=== PATIENT | female | born 1990 | race Caucasian/White ===

== ENCOUNTER 2017-08-12 22:26 | Inpatient (IN) | payer MEDICAID ==
[2017-08-12] MEDS ORDERED: fentaNYL 100 MCG/2 ML SDV IVPUSH ONE (23:29)
[2017-08-12] MEDS ORDERED: Sodium Chloride 0.9% 10 ML Syringe FLUSH PRN (23:30)
[2017-08-13] MEDS ORDERED: Lactated Ringers 1,000 ML IV ONE (00:30)
[2017-08-13] MEDS ORDERED: diphenhydrAMINE 50 MG/ML SDV IVPUSH PRN ×2 (01:14)
[2017-08-13] MEDS ORDERED: ePHEDrine 50 MG/ML SDV IV PRN (01:14)
[2017-08-13] MEDS ORDERED: Naloxone 0.4 MG/ML SDV IVPUSH PRN (01:14)
[2017-08-13] MEDS ORDERED: Ropivacaine HCl/PF 200 ML ONE (01:26)
[2017-08-13] MEDS ORDERED: Lactated Ringers 1,000 ML IV SCH (01:45)
[2017-08-13] MEDS ORDERED: ROPIVACAINE EPIDUR SCH (02:00)
--- NOTE | 2017-08-13 02:23 | ANES ---
DATE OF SERVICE: 08/13/2017 TIME: 0130 hours. INDICATION: I was called to the Labor and Delivery Unit to evaluate Ms. Clemons for a labor epidural. This is her 2nd baby and she is approximately 4 cm and progressing nicely. The risks and benefits of the procedure were explained to the patient. She wished to proceed with labor epidural. DESCRIPTION OF PROCEDURE: I did place her in the sitting position. Her back was prepped x3 with Betadine and 1% lidocaine skin local was used. The epidural was placed at L3-L4 using a 17-gauge Tuohy needle in loss of resistance technique. The epidural had very good feel throughout and the epidural space was easily identified. There was negative CSF, negative blood, and negative paresthesias noted. Therefore, a catheter was threaded to 13 cm at the skin. There was negative CSF, negative blood, and negative paresthesias with the catheter as well. A 3 mL test dose of 1.5% lidocaine with epinephrine was given and this test dose was negative. The catheter was then secured with Tegaderm and tape. The patient was then placed in the supine position and a bolus of 10 mL of 0.2% ropivacaine was given. She had very nice relief from the bolus. A 0.2% ropivacaine drip was started at 12 mL/h. Her vital signs remained stable throughout the procedure and nurse was with me the entire procedure. There were no anesthesia complications noted, and we will continue to watch her throughout her Labor and Delivery stay. Kobe Paredes CRNA /[id number]
[2017-08-13] MEDS ORDERED: Sodium Chloride 0.9% 10 ML Syringe FLUSH PRN (03:43)
[2017-08-13] MEDS ORDERED: Acetaminophen 325 MG Tab PO PRN (03:43)
[2017-08-13] MEDS ORDERED: Ondansetron 4 MG Tab.DIS PO PRN (03:43)
--- NOTE | 2017-08-13 03:54 | PCM.LDHP ---
L&D History of Present Illness - General Date of Service: 08/13/17 Admit Problem/Dx: Patient Status Order with Admit Dx/Problem 08/12/17 23:30 Admission Status [Patient Status] [ADT] Routine 08/13/17 03:43 Patient Status [ADT] Routine Admission Diagnosis/Problem Admission Diagnosis/Problem Labor established Source of Information: Patient History Limitations: Reports: No Limitations - History of Present Illness Introduction:: This 26 year old who is 39 1/7 weeks gestation presented with contractions at 1100 last evening. She had been seen in clinic yesterday and was dilated to 3 cm bloody show with vaginal exam. contractions became intense over the evening and she decided that it was time to come in. Timing/Duration: Reports: minutes: (3-5) Location, : Reports: Abdomen Quality: Reports: Pressure Severity: Moderate Pain Score: 8 Improves with: Reports: None Worsens with: Reports: None Associated Symptoms: Reports: vaginal fluid Present Illness Comments:: SROM with exam at 0330, clear fluid and dil to 8 cm/100/1 - Related Data Allergies/Adverse Reactions: Allergies Allergy/AdvReac Type Severity Reaction Status Date / Time No Known Allergies Allergy Verified 02/04/14 11:22 Home Medications: Home Meds NK [No Known Home Meds] 02/04/14 [History] Past Medical History SYSTEM ADMIN History: Reports: : 2 Para: 1 LMP (Approximate): (39 1/7) - Infectious Disease History Infectious Disease History: Reports: Chicken Pox - Past Surgical History HEENT Surgical History: Reports: Myringotomy w Tube(s) Social & Family History - Tobacco Use Smoking Status *Q: Never Smoker Second Hand Smoke Exposure: No - Caffeine Use Caffeine Use: Reports: Coffee, Soda Caffeine Use Comment: occasionally - Recreational Drug Use Recreational Drug Use: No H&P Review of Systems - Review of Systems: Review Of Systems: See Below General: Reports: No Symptoms HEENT: Reports: No Symptoms Pulmonary: Reports: No Symptoms Cardiovascular: Reports: No Symptoms Gastrointestinal: Reports: No Symptoms Genitourinary: Reports: No Symptoms Musculoskeletal: Reports: No Symptoms Skin: Reports: No Symptoms Psychiatric: Reports: No Symptoms Neurological: Reports: No Symptoms Hematologic/Lymphatic: Reports: No Symptoms Immunologic: Reports: No Symptoms L&D Exam - Exam Exam: See Below - Vital Signs Vital Signs: Last Vital Signs Temp 96.6 F 08/13/17 01:42 Pulse 97 08/13/17 02:02 Resp 16 08/13/17 02:02 BP 113/71 08/13/17 02:02 Pulse Ox 94 L 08/13/17 02:02 Weight: 170 lb - OB Specific Contraction Duration (sec): 70-100 Contraction Frequency (min): 3-6 Contraction Intensity: Strong Movement: Active Heart Tones: Present Heart Tones per Min: 120 Heart Rate (FHR) Variability: Moderate (6-25 bmp) Presentation: Vertex Estimated Weight: 8 pounds - Morris Score Morris Score Cervix Position: Anterior Morris Score Consistency: Soft Morris Score Effacement: >80% Morris Score Dilation: > 5 cm Morris Score Infant's Station: -1 ,0 Morris Score Total: 12 - Exam General: Alert, Oriented HEENT: PERRLA, Conjunctiva Clear, EACs Clear, EOMI, Hearing Intact, Mucosa Moist & [place], Nares Patent, Normal Nasal Septum, Posterior Pharynx Clear, TMs Clear Neck: Supple, Trachea Midline Lungs: Clear to Auscultation, Normal Respiratory Effort Cardiovascular: Regular Rate, Regular Rhythm GI/Abdominal Exam: Normal Bowel Sounds, Soft, Non-Tender, No Distention, No Mass , Pelvis Stable Rectal Exam: Normal Exam, Normal Rectal Tone Genitourinary: Normal external exam, Cervical dilitation, Cervical fluid, Enlarged uterus Back Exam: Normal Inspection, Full Range of Motion Extremities: Normal Inspection, Normal Range of Motion, Non-Tender, No Pedal Edema, Normal Capillary Refill Skin: Warm, Dry, Intact Neurological: Cranial Nerves Intact, Reflexes Equal Bilateral Psychiatric: Alert, Normal Affect, Normal Mood - Patient Data Lab Results Last 24 hrs: Laboratory Results - last 24 hr 08/12/17 08/12/17 08/13/17 Range/Units 22:31 23:43 00:45 WBC 9.9 (4.5-11.0) K/uL RBC 4.02 (3.30-5.50) M/uL Hgb 13.4 (12.0-15.0) g/dL Hct 39.1 (36.0-48.0) % MCV 97 (80-98) fL MCH 33 H (27-31) pg MCHC 34 (32-36) % Plt Count 121 L (150-400) K/uL Neut % (Auto) 83 H (36-66) % Lymph % (Auto) 12 L (24-44) % [place] % (Auto) 5 (2-6) % Eos % (Auto) 0 L (2-4) % Baso % (Auto) 0 (0-1) % Urine Color Yellow Urine Appearance Cloudy Urine pH 7.0 (4.5-8.0) Ur Specific [place] 1.015 (1.008-1.030) Urine Protein Negative (NEGATIVE) mg/dL Urine Glucose (UA) Normal (NEGATIVE) mg/dL Urine Ketones Negative (NEGATIVE) mg/dL Urine Occult Blood Large (NEGATIVE) Urine Nitrite Negative (NEGATIVE) Urine Bilirubin Negative (NEGATIVE) Urine Urobilinogen Normal (NORMAL) mg/dL Ur Leukocyte Esterase Negative (NEGATIVE) Urine RBC 0-5 (0-5) Urine WBC 0-5 (0-5) Ur Epithelial Cells Few Amorphous Sediment Moderate Urine Bacteria Moderate Urine Mucus Not seen Urine Opiates Screen Negative (NEGATIVE) Ur Oxycodone Screen Negative (NEGATIVE) Urine Methadone Screen Negative (NEGATIVE) Ur Propoxyphene Screen Negative (NEGATIVE) Ur Barbiturates Screen Negative (NEGATIVE) Ur Tricyclics Screen Negative (NEGATIVE) Ur Phencyclidine Scrn Negative (NEGATIVE) Ur Amphetamine Screen Negative (NEGATIVE) U Methamphetamines Scrn Negative (NEGATIVE) Urine MDMA Screen Negative (NEGATIVE) U Benzodiazepines Scrn Negative (NEGATIVE) U Cocaine Metab Screen Negative (NEGATIVE) U Marijuana (THC) Screen Negative (NEGATIVE) Result Diagrams: 08/13/17 00:45 - Problem List (1) SNOMED Code(s): 86068300 ICD Code: Z34.90 - ENCNTR FOR SUPRVSN OF NORMAL , UNSP, UNSP TRIMESTER Status: Acute Current Visit: Yes Qualifiers: Weeks of gestation: 39 weeks Qualified Code(s): Z3A.39 - 39 weeks gestation of (2) Active labor at term SNOMED Code(s): 12942902 ICD Code: MWY1733 - Status: Acute Current Visit: Yes Problem List Initiated/Reviewed/Updated: Yes Orders Last 24hrs: Active Orders 24 hr Category Date Time Status Patient Status [ADT] Routine ADT 08/13/17 03:43 Ordered Antiembolic Devices [RC] .Routine Care 08/13/17 03:46 Ordered Communication Order [RC] ASDIRECTED Care 08/13/17 03:43 Ordered Heart Tones [RC] PER UNIT ROUTINE Care 08/13/17 03:43 Ordered Insert Urinary Catheter [OM.PC] Q24H Care 08/13/17 02:00 Ordered Notify Provider Vital Signs [RC] PRN Care 08/13/17 00:00 Ordered Notify Provider [RC] PRN Care 08/13/17 03:43 Ordered OB Check [OM.PC] Click to Edit Care 08/12/17 22:30 Ordered PCEA Epidural [RC] ASDIRECTED Care 08/13/17 01:37 Active Urinary Catheter Assessment [RC] ASDIRECTED Care 08/13/17 01:50 Active VTE/DVT Education [RC] Click to Edit Care 08/13/17 03:46 Ordered Vital Signs [RC] PER UNIT ROUTINE Care 08/13/17 03:43 Ordered Regular Diet [DIET] Diet 08/13/17 Breakfast Ordered Acetaminophen [Tylenol] Med 08/13/17 03:43 Ordered 650 mg PO Q4H PRN Lactated Ringers [Ringers, Lactated] 1,000 ml Med 08/13/17 01:45 Active IV ASDIRECTED Naloxone [Narcan] Med 08/13/17 01:14 Active 0.1 mg IVPUSH Q5M PRN Naloxone [Narcan] 0.4 mg Med 08/13/17 01:14 Active Sodium Chloride 0.9% [Normal Saline] 1,000 ml IV ASDIRECTED Ondansetron [Zofran ODT] Med 08/13/17 03:43 Ordered 4 mg PO Q4H PRN Oxytocin/Normal Saline [Pitocin in NS 20 Units/1,000 ML Med 08/13/17 04:00 Ordered ] 1,000 ml IV TITRATE Ropivacaine [Naropin 0.2%] 400 mg Med 08/13/17 02:00 Active Premix Bag 1 bag EPIDUR ASDIRECTED Sodium Chloride 0.9% [Saline Flush] Med 08/12/17 23:30 Active 10 ml FLUSH ASDIRECTED PRN Sodium Chloride 0.9% [Saline Flush] Med 08/13/17 03:43 Ordered 10 ml FLUSH ASDIRECTED PRN diphenhydrAMINE [Benadryl] Med 08/13/17 01:14 Active 25 mg IVPUSH Q6H PRN diphenhydrAMINE [Benadryl] Med 08/13/17 01:14 Active 50 mg IVPUSH Q6H PRN ePHEDrine [ePHEDrine Sulfate] Med 08/13/17 01:14 Active 5 - 10 mg IV ASDIRECTED PRN DVT/VTE Prophylaxis Reflex [OM.PC] Routine Oth 08/13/17 03:43 Ordered Epidural Catheter Management [OM.PC] Routine Oth 08/13/17 01:36 Ordered Saline Lock Insert [OM.PC] Routine Oth 08/12/17 23:30 Ordered Saline Lock Insert [OM.PC] Routine Oth 08/13/17 03:43 Ordered Resuscitation Status Routine Resus Stat 08/13/17 03:43 Ordered Medication Orders Diphenhydramine HCl (Benadryl) 25 mg IVPUSH Q6H PRN PRN Reason: ITCHING Diphenhydramine HCl (Benadryl) 50 mg IVPUSH Q6H PRN PRN Reason: ITCHING Ephedrine Sulfate (Ephedrine Sulfate) 5 - 10 mg IV ASDIRECTED PRN PRN Reason: Systolic BP less than 100 Naloxone HCl 0.4 mg/ Sodium (Chloride) 1,001 mls @ 0 mls/hr IV ASDIRECTED PRN; Protocol PRN Reason: ITCHING Lactated Ringer's (Ringers, Lactated) 1,000 mls @ 100 mls/hr IV ASDIRECTED [facility] Last Admin: 08/13/17 01:30 Dose: 100 mls/hr Ropivacaine 400 mg/ Premix 200 mls @ 0 mls/hr EPIDUR ASDIRECTED [facility] Last Admin: 08/13/17 01:52 Dose: 12 mls/hr Naloxone HCl (Narcan) 0.1 mg IVPUSH Q5M PRN PRN Reason: IF RESP RATE LESS THAN 6 Sodium Chloride (Saline Flush) 10 ml FLUSH ASDIRECTED PRN PRN Reason: Keep Vein Open Sodium Chloride (Saline Flush) 10 ml FLUSH ASDIRECTED PRN PRN Reason: Keep Vein Open Assessment/Plan Comment:: this 26 yr old 39 1/7 weeks gestation in active labor with an epidural Labs ABO A neg, had Rhogam GBS neg HIV neg Rubella Immune Plan Anticipate vaginal delivery
[2017-08-13] MEDS ORDERED: Calcium Carbonate 500 MG Tab.Chew PO PRN (04:16)
--- NOTE | 2017-08-13 07:18 | PCM.DEL ---
L & D Note - General Info Date of Service: 08/13/17 (birthday) Mother's Due Date: 08/19/17 - Delivery Note Labor: Spontaneous Delivery Outcome: Livebirth Infant Delivery Method: Spontaneous Vaginal Delivery-Single Infant Delivery Mode: Spontaneous Presentation: Right Occiput Anterior ([place]) Nuchal Cord: Present, Reduced Anesthesia Type: Epidural Amniotic Fluid Description: Clear Episiotomy Type: None Laceration: 1st Degree, Perineal Suture type: Vicryl Suture size: 3-0 Placenta: Intact, Spontaneous Cord: 3 Vessels Estimated Blood Loss: 200 Resuscitation Needed: Yes [place]: Suctioned, Bulb Syringe, Cathether, Stimulated, Warmed, [place] Used, Warmer Used Provider: Adrianna Tubbs Score 1 min: 9 Score 5 min: 9 Post Delivery Events: Other (see below) Second Stage Interventions: Reports: Pushing Effectively, Pushing, McRobert's Position Delivery Comments (Free Text/Narrative):: This 26 year oldG2 now P2 who is 39 1/7 gestation delivered at 0547 in [place] with a nuchal cord which was easily reduced. The cried spontaneously and was placed on mother's abdomen, where he was dried and stimulated. Of interest the vernix was grainy. At 0555 he turned blue and was coughing. He was taken to the warmer for further assessment. He was suctions and PPV started. Poor color. [employer] and Dr. Jamil were called for assistance. His color remained poor. Attempts to pass nasal suction were unsuccessful. OG was placed and stomach emptied. 0622 [employer] present and ET placed and ventilations started. color improved O2 sat 100. HR 123. orders placed for cbc crp, blood cultures and chest xray. The placenta was expressed spontaneously intact and sent to pathology. The first degree perineal tear was repaired with 3-0 vircyl. No other lacerations were found of vagina, rectum or cervix. ELB 200 cc Mother to post baby to nursery for [facility] assessment and transportation to [facility] - General Info Date of Service: 08/13/17 Admission Dx/Problem (Free Text): Patient Status Order with Admit Dx/Problem 08/12/17 23:30 Admission Status [Patient Status] [ADT] Routine 08/13/17 03:43 Patient Status [ADT] Routine Admission Diagnosis/Problem Admission Diagnosis/Problem Labor established Functional Status: Reports: Pain Controlled - Review of Systems General: Reports: No Symptoms HEENT: Reports: No Symptoms Pulmonary: Reports: No Symptoms Cardiovascular: Reports: No Symptoms Gastrointestinal: Reports: No Symptoms Genitourinary: Reports: No Symptoms Musculoskeletal: Reports: No Symptoms Skin: Reports: No Symptoms Neurological: Reports: No Symptoms Psychiatric: Reports: No Symptoms - Patient Data Vitals - Most Recent: Last Vital Signs Temp 97.5 F 08/13/17 04:35 Pulse 89 08/13/17 04:35 Resp 18 08/13/17 04:35 BP 106/68 08/13/17 04:35 Pulse Ox 99 08/13/17 04:35 Weight - Most Recent: 170 lb Lab Results Last 24 Hours: Laboratory Results - last 24 hr 08/12/17 08/12/17 08/13/17 Range/Units 22:31 23:43 00:45 WBC 9.9 (4.5-11.0) K/uL RBC 4.02 (3.30-5.50) M/uL Hgb 13.4 (12.0-15.0) g/dL Hct 39.1 (36.0-48.0) % MCV 97 (80-98) fL MCH 33 H (27-31) pg MCHC 34 (32-36) % Plt Count 121 L (150-400) K/uL Neut % (Auto) 83 H (36-66) % Lymph % (Auto) 12 L (24-44) % [place] % (Auto) 5 (2-6) % Eos % (Auto) 0 L (2-4) % Baso % (Auto) 0 (0-1) % Urine Color Yellow Urine Appearance Cloudy Urine pH 7.0 (4.5-8.0) Ur Specific [place] 1.015 (1.008-1.030) Urine Protein Negative (NEGATIVE) mg/dL Urine Glucose (UA) Normal (NEGATIVE) mg/dL Urine Ketones Negative (NEGATIVE) mg/dL Urine Occult Blood Large (NEGATIVE) Urine Nitrite Negative (NEGATIVE) Urine Bilirubin Negative (NEGATIVE) Urine Urobilinogen Normal (NORMAL) mg/dL Ur Leukocyte Esterase Negative (NEGATIVE) Urine RBC 0-5 (0-5) Urine WBC 0-5 (0-5) Ur Epithelial Cells Few Amorphous Sediment Moderate Urine Bacteria Moderate Urine Mucus Not seen Urine Opiates Screen Negative (NEGATIVE) Ur Oxycodone Screen Negative (NEGATIVE) Urine Methadone Screen Negative (NEGATIVE) Ur Propoxyphene Screen Negative (NEGATIVE) Ur Barbiturates Screen Negative (NEGATIVE) Ur Tricyclics Screen Negative (NEGATIVE) Ur Phencyclidine Scrn Negative (NEGATIVE) Ur Amphetamine Screen Negative (NEGATIVE) U Methamphetamines Scrn Negative (NEGATIVE) Urine MDMA Screen Negative (NEGATIVE) U Benzodiazepines Scrn Negative (NEGATIVE) U Cocaine Metab Screen Negative (NEGATIVE) U Marijuana (THC) Screen Negative (NEGATIVE) Med Orders - Current: Current Medications Acetaminophen (Tylenol) 650 mg PO Q4H PRN PRN Reason: Pain (Mild 1-3) and fever Calcium Carbonate/Glycine (Tums) 1,000 mg PO Q2H PRN PRN Reason: Indigestion Last Admin: 08/13/17 04:35 Dose: 1,000 mg Diphenhydramine HCl (Benadryl) 25 mg IVPUSH Q6H PRN PRN Reason: ITCHING Diphenhydramine HCl (Benadryl) 50 mg IVPUSH Q6H PRN PRN Reason: ITCHING Ephedrine Sulfate (Ephedrine Sulfate) 5 - 10 mg IV ASDIRECTED PRN PRN Reason: Systolic BP less than 100 Naloxone HCl 0.4 mg/ Sodium (Chloride) 1,001 mls @ 0 mls/hr IV ASDIRECTED PRN; Protocol PRN Reason: ITCHING Lactated Ringer's (Ringers, Lactated) 1,000 mls @ 100 mls/hr IV ASDIRECTED [place] Last Admin: 08/13/17 01:30 Dose: 100 mls/hr Ropivacaine 400 mg/ Premix 200 mls @ 0 mls/hr EPIDUR ASDIRECTED [facility] Last Admin: 08/13/17 01:52 Dose: 12 mls/hr Oxytocin/Sodium Chloride (Pitocin In Ns 20 Units/1,000 Ml) 20 unit in 1,000 mls @ 6 mls/hr IV TITRATE [facility]; Protocol Last Admin: 08/13/17 04:19 Dose: 6 munits/min, 18 mls/hr Naloxone HCl (Narcan) 0.1 mg IVPUSH Q5M PRN PRN Reason: IF RESP RATE LESS THAN 6 Ondansetron HCl (Zofran Odt) 4 mg PO Q4H PRN PRN Reason: Nausea/Vomiting Sodium Chloride (Saline Flush) 10 ml FLUSH ASDIRECTED PRN PRN Reason: Keep Vein Open Sodium Chloride (Saline Flush) 10 ml FLUSH ASDIRECTED PRN PRN Reason: Keep Vein Open Discontinued Medications Fentanyl (Sublimaze) 100 mcg IVPUSH ONETIME ONE Stop: 08/12/17 23:30 Last Admin: 08/12/17 23:39 Dose: 100 mcg Oxytocin/Sodium Chloride (Pitocin In Ns 20 Units/1,000 Ml) Confirm Administered Dose 20 unit in 1,000 mls @ as directed .ROUTE .STK-MED ONE Stop: 08/13/17 01:24 Last Admin: 08/13/17 04:23 Dose: Not Given Ropivacaine (Naropin 0.2%) Confirm Administered Dose 200 mls @ as directed .ROUTE .STK-MED ONE Stop: 08/13/17 01:27 Lactated Ringer's (Ringers, Lactated) 1,000 mls @ 999 mls/hr IV BOLUS ONE Stop: 08/13/17 01:30 Last Admin: 08/13/17 00:30 Dose: 999 mls/hr - Exam General: Alert, Oriented HEENT: Pupils Equal, Pupils Reactive, EOMI, Mucous Membr. Moist/[place] Neck: Supple Lungs: Clear to Auscultation, Normal Respiratory Effort Cardiovascular: Regular Rate, Regular Rhythm GI/Abdominal Exam: Normal Bowel Sounds, Soft, Non-Tender, No Organomegaly, No Distention, No Abnormal Bruit, No Mass, Pelvis Stable (Female) Exam: Enlarged Uterus, Vaginal Bleeding Back Exam: Normal Inspection, Full Range of Motion Extremities: Normal Inspection, Normal Range of Motion, Non-Tender, No Pedal Edema, Normal Capillary Refill Skin: Warm, Dry, Intact Wound/Incisions: Healing Well Neurological: No New Focal Deficit Psy/Mental Status: Alert, Normal Affect, Normal Mood - Problem List & Annotations (1) SNOMED Code(s): 48215771 Code(s): Z34.90 - ENCNTR FOR SUPRVSN OF NORMAL , UNSP, UNSP TRIMESTER Status: Acute Current Visit: Yes Qualifiers: Weeks of gestation: 39 weeks Qualified Code(s): Z3A.39 - 39 weeks gestation of (2) Active labor at term SNOMED Code(s): 92205841 Code(s): NVK7657 - Status: Acute Current Visit: Yes - Problem List Review Problem List Initiated/Reviewed/Updated: Yes - My Orders Last 24 Hours: My Active Orders 08/12/17 22:30 OB Check [OM.PC] Click to Edit 08/12/17 23:30 Sodium Chloride 0.9% [Saline Flush] 10 ml FLUSH ASDIRECTED PRN Saline Lock Insert [OM.PC] Routine 08/13/17 00:00 Notify Provider Vital Signs [RC] PRN 08/13/17 01:14 Naloxone [Narcan] 0.1 mg IVPUSH Q5M PRN Naloxone [Narcan] 0.4 mg Sodium Chloride 0.9% [Normal Saline] 1,000 ml IV ASDIRECTED diphenhydrAMINE [Benadryl] 25 mg IVPUSH Q6H PRN diphenhydrAMINE [Benadryl] 50 mg IVPUSH Q6H PRN ePHEDrine [ePHEDrine Sulfate] 5 - 10 mg IV ASDIRECTED PRN 08/13/17 01:36 Epidural Catheter Management [OM.PC] Routine 08/13/17 01:37 PCEA Epidural [RC] ASDIRECTED 08/13/17 01:45 Lactated Ringers [Ringers, Lactated] 1,000 ml IV ASDIRECTED 08/13/17 01:50 Urinary Catheter Assessment [RC] ASDIRECTED 08/13/17 02:00 Insert Urinary Catheter [OM.PC] Q24H Ropivacaine [Naropin 0.2%] 400 mg Premix Bag 1 bag EPIDUR ASDIRECTED 08/13/17 03:43 Patient Status [ADT] Routine Communication Order [RC] ASDIRECTED Heart Tones [RC] PER UNIT ROUTINE Notify Provider [RC] PRN Vital Signs [RC] PER UNIT ROUTINE Acetaminophen [Tylenol] 650 mg PO Q4H PRN Ondansetron [Zofran ODT] 4 mg PO Q4H PRN Sodium Chloride 0.9% [Saline Flush] 10 ml FLUSH ASDIRECTED PRN DVT/VTE Prophylaxis Reflex [OM.PC] Routine Saline Lock Insert [OM.PC] Routine Resuscitation Status Routine 08/13/17 03:46 Antiembolic Devices [RC] .Routine VTE/DVT Education [RC] Click to Edit 08/13/17 04:00 Oxytocin/Normal Saline [Pitocin in NS 20 Units/1,000 ML] 20 unit in 1,000 ml IV TITRATE 08/13/17 04:16 Calcium Carbonate [Tums] 1,000 mg PO Q2H PRN 08/13/17 07:08 May Shower [RC] ASDIRECTED Up ad Emma [RC] ASDIRECTED Assess Lochia [WOMSER] Per Unit Routine Assess Uterine Involution [WOMSER] Per Unit Routine 08/13/17 07:09 Patient Status [ADT] Routine Vital Signs [RC] PFP 08/13/17 07:10 Sitz Bath [OM.PC] Per Unit Routine 08/13/17 Breakfast Regular Diet [DIET] 08/14/17 05:11 CBC WITH AUTO DIFF [HEME] AM - Assessment Assessment:: 08/13/17 26 year old G2 Pnow2 with small perineal tear, repaired with complications, see notes - Plan Plan:: this 26 yr old 39 1/7 weeks gestation in active labor with an epidural Labs ABO A neg, had Rhogam GBS neg HIV neg Rubella Immune Plan Anticipate vaginal delivery 08/13/17 Short stay as baby being transferred to [place]. Will need Rhogam workup Mother A neg ABO Will need a 6 week post visit
== END 2017-08-13 11:45 | disposition home or self-care (01) | DRG 775 ==
LOC: JP.OBCHECK 22:26 → JP.OB 23:30 → OBSVTOIN 08-13 05:47
PROVIDERS: ADMIT Nurse Practitioner Family; ATTEND Nurse Practitioner Family
PROC: 10E0XZZ Delivery of Products of Conception, External Approach (ICD-10-PCS; principal; 2017-08-13)
PROC: 0HQ9XZZ Repair Perineum Skin, External Approach (ICD-10-PCS; 2017-08-13)
DX: O69.1XX0 Labor and delivery complicated by cord around neck, with compression, not applicable or unspecified (principal); O70.0 First degree perineal laceration during delivery; Z3A.39 39 weeks gestation of pregnancy; Z37.0 Single live birth
CPT/HCPCS: 36415; 51702; 59300; 59409; 80305; 81001; 85025; 99211; A9270-GY; J2590; J2795; J3010; J7120

== ENCOUNTER 2019-11-02 04:40 | Inpatient (IN) | payer MEDICAID ==
[2019-11-02] MEDS ORDERED: Misoprostol 50 MCG (1/2 of 100 MCG) Tab VAG ONE ×2 (06:50→12:00)
[2019-11-02] MEDS ORDERED: Lactated Ringers 1,000 ML IV ONE (08:20)
[2019-11-02] MEDS ORDERED: Sodium Chloride 0.9% 10 ML Syringe FLUSH PRN (08:20)
[2019-11-02] MEDS ORDERED: ePHEDrine 50 MG/ML SDV IVPUSH PRN ×2 (08:20)
[2019-11-02] MEDS ORDERED: Naloxone 0.4 MG/ML SDV IVPUSH PRN (08:20)
[2019-11-02] MEDS ORDERED: diphenhydrAMINE 50 MG/ML SDV IVPUSH PRN ×2 (08:20)
[2019-11-02] MEDS ORDERED: Acetaminophen 325 MG Tab PO PRN (08:20)
[2019-11-02] MEDS ORDERED: Ondansetron 4 MG/2 ML SDV IV PRN (08:20)
[2019-11-02] MEDS ORDERED: Ropivacaine 200 MG in Premix Bag 1 BAG EPIDUR SCH (08:30)
--- NOTE | 2019-11-02 08:30 | PCM.LDHP ---
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: - Infectious Disease History Infectious Disease History: Reports: Chicken Pox - Past Surgical History HEENT Surgical History: Reports: Myringotomy w Tube(s) Social & Family History - Family History Family Medical History: Noncontributory - Tobacco Use Smoking Status *Q: Former Smoker Used Tobacco, but Quit: Yes Month/Year Tobacco Last Used: 2016 - Caffeine Use Caffeine Use: Reports: Coffee Caffeine Use Comment: occasionally - Recreational Drug Use Recreational Drug Use: No H&P Review of Systems - Review of Systems: Review Of Systems: See Below General: Reports: No Symptoms HEENT: Reports: No Symptoms Pulmonary: Reports: No Symptoms Cardiovascular: Reports: No Symptoms Gastrointestinal: Reports: No Symptoms Genitourinary: Reports: No Symptoms Musculoskeletal: Reports: No Symptoms Skin: Reports: No Symptoms Psychiatric: Reports: No Symptoms Neurological: Reports: No Symptoms Hematologic/Lymphatic: Reports: No Symptoms Immunologic: Reports: No Symptoms L&D Exam - Exam Exam: See Below - Vital Signs Vital Signs: Last Vital Signs Temp 36.4 C 11/02/19 08:00 Pulse 101 H 11/02/19 08:00 Resp 18 11/02/19 08:00 BP 108/70 11/02/19 08:00 Pulse Ox 94 L 11/02/19 08:00 Weight: 66.224 kg - OB Specific Contraction Duration (sec): 70-100 Contraction Frequency (min): x3 Contraction Intensity: Mild Movement: Active Heart Tones: Present Heart Rate (FHR) Variability: Moderate (6-25 bmp) Presentation: Vertex - Morris Score Morris Score Cervix Position: Posterior Morris Score Consistency: Soft Morris Score Effacement: 51-70% Morris Score Dilation: 1-2 cm Morris Score 's Station: -2 Morris Score Total: 6 - Exam General: Alert, Oriented, Cooperative HEENT: PERRLA, Conjunctiva Clear, EACs Clear, EOMI, Hearing Intact, Mucosa Moist & [place], Nares Patent, Normal Nasal Septum, Posterior Pharynx Clear, TMs Clear Neck: Supple, Trachea Midline Lungs: Clear to Auscultation, Normal Respiratory Effort Cardiovascular: Regular Rate, Regular Rhythm GI/Abdominal Exam: Normal Bowel Sounds, Soft, Non-Tender, No Organomegaly, No Distention, No Abnormal Bruit, No Mass, Pelvis Stable Rectal Exam: Normal Exam, Normal Rectal Tone Genitourinary: Normal external exam, Normal bimanual exam, Normal speculum exam Back Exam: Normal Inspection, Full Range of Motion Extremities: Normal Inspection, Normal Range of Motion, Non-Tender, No Pedal Edema, Normal Capillary Refill Skin: Warm, Dry, Intact Neurological: Cranial Nerves Intact, Reflexes Equal Bilateral Psychiatric: Alert, Normal Affect, Normal Mood - Patient Data Lab Results Last 24 hrs: Laboratory Results - last 24 hr 11/02/19 11/02/19 11/02/19 Range/Units 07:15 07:15 07:15 WBC 7.8 (4.5-11.0) K/uL RBC 3.70 (3.30-5.50) M/uL Hgb 12.8 (12.0-15.0) g/dL Hct 37.2 (36.0-48.0) % MCV 101 H (80-98) fL MCH 35 H (27-31) pg MCHC 34 (32-36) % Plt Count 103 L (150-400) K/uL Neut % (Auto) 73 H (36-66) % Lymph % (Auto) 19 L (24-44) % [place] % (Auto) 7 H (2-6) % Eos % (Auto) 1 L (2-4) % Baso % (Auto) 0 (0-1) % Urine Color Yellow (YELLOW) Urine Appearance Slightly cloudy A (CLEAR) Urine pH 6.0 (5.0-8.0) Ur Specific [place] 1.025 (1.008-1.030) Urine Protein Negative (NEGATIVE) mg/dL Urine Glucose (UA) 500 H (NEGATIVE) mg/dL Urine Ketones Trace H (NEGATIVE) mg/dL Urine Occult Blood Negative (NEGATIVE) Urine Nitrite Negative (NEGATIVE) Urine Bilirubin Negative (NEGATIVE) Urine Urobilinogen 0.2 (0.2-1.0) EU/dL Ur Leukocyte Esterase Negative (NEGATIVE) Urine RBC 0-5 (0-5) Urine WBC 0-5 (0-5) Ur Epithelial Cells Moderate Amorphous Sediment Not seen Urine Bacteria Many Urine Mucus Many Urine Opiates Screen Negative (NEGATIVE) Ur Oxycodone Screen Negative (NEGATIVE) Urine Methadone Screen Negative (NEGATIVE) Ur Propoxyphene Screen Negative (NEGATIVE) Ur Barbiturates Screen Negative (NEGATIVE) Ur Tricyclics Screen Negative (NEGATIVE) Ur Phencyclidine Scrn Negative (NEGATIVE) Ur Amphetamine Screen Negative (NEGATIVE) U Methamphetamines Scrn Negative (NEGATIVE) Urine MDMA Screen Negative (NEGATIVE) U Benzodiazepines Scrn Negative (NEGATIVE) U Cocaine Metab Screen Negative (NEGATIVE) U Marijuana (THC) Screen Negative (NEGATIVE) Result Diagrams: 11/02/19 07:15 - Problem List (1) Encounter for induction of labor SNOMED Code(s): 235450422 ICD Code: Z34.90 - ENCNTR FOR SUPRVSN OF NORMAL , UNSP, UNSP TRIMESTER Status: Acute Current Visit: Yes (2) SNOMED Code(s): 86662565 ICD Code: Z34.90 - ENCNTR FOR SUPRVSN OF NORMAL , UNSP, UNSP TRIMESTER Status: Acute Current Visit: No Qualifiers: Weeks of gestation: 39 weeks Problem List Initiated/Reviewed/Updated: Yes Orders Last 24hrs: Active Orders 24 hr Category Date Time Status Patient Status [ADT] Routine ADT 11/02/19 08:21 Ordered Ambulate [RC] PER UNIT ROUTINE Care 11/02/19 08:20 Ordered Communication Order [RC] ASDIRECTED Care 11/02/19 08:21 Ordered Communication Order [RC] ASDIRECTED Care 11/02/19 08:21 Ordered Communication Order [RC] ROUTINE Care 11/02/19 08:21 Ordered Communication Order [RC] ROUTINE Care 11/02/19 08:21 Ordered Communication Order [RC] ROUTINE Care 11/02/19 08:21 Ordered Heart Tones [RC] PER UNIT ROUTINE Care 11/02/19 08:21 Ordered Non Stress Test [RC] Click to Edit Care 11/02/19 08:21 Ordered Insert Urinary Catheter [OM.PC] ASDIRECTED Care 11/02/19 08:30 Ordered Local Anesthetic Infusion Pump [RC] ASDIRECTED Care 11/02/19 08:21 Ordered May Shower [RC] ASDIRECTED Care 11/02/19 08:20 Ordered Notify Provider Vital Signs [RC] PRN Care 11/02/19 08:20 Ordered Notify Provider [RC] PRN Care 11/02/19 08:21 Ordered Oxygen Therapy [RC] ASDIRECTED Care 11/02/19 08:21 Ordered PCEA Epidural [RC] ASDIRECTED Care 11/02/19 08:21 Ordered PCEA Epidural [RC] ASDIRECTED Care 11/02/19 08:21 Ordered PCEA Epidural [RC] ASDIRECTED Care 11/02/19 08:21 Ordered Peripheral IV Care [RC] . DIRECTED Care 11/02/19 08:21 Ordered Pulse Oximetry [RC] ASDIRECTED Care 11/02/19 08:21 Ordered Up ad Emma [RC] ASDIRECTED Care 11/02/19 08:20 Ordered Urinary Catheter Assessment [RC] ASDIRECTED Care 11/02/19 08:21 Ordered VTE/DVT Education [RC] Click to Edit Care 11/02/19 08:23 Ordered Vital Signs [RC] PER UNIT ROUTINE Care 11/02/19 08:21 Ordered Vital Signs [RC] PER UNIT ROUTINE Care 11/02/19 08:21 Ordered Regular Diet [DIET] Diet 11/02/19 Breakfast Ordered Acetaminophen [Tylenol] Med 11/02/19 08:20 Ordered 650 mg PO Q4H PRN Lactated Ringers [Ringers, Lactated] 1,000 ml Med 11/02/19 08:20 Ordered IV .BOLUS Naloxone [Narcan] Med 11/02/19 08:20 Ordered 0.1 mg IVPUSH ASDIRECTED PRN Ondansetron [Zofran] Med 11/02/19 08:20 Ordered 4 mg IV Q4H PRN Ropivacaine [Naropin 0.2%] 200 mg Med 11/02/19 08:30 Ordered Premix Bag 1 bag EPIDUR ASDIRECTED Sodium Chloride 0.9% [Saline Flush] Med 11/02/19 08:20 Ordered 10 ml FLUSH ASDIRECTED PRN diphenhydrAMINE [Benadryl] Med 11/02/19 08:20 Ordered 25 mg IVPUSH Q6H PRN diphenhydrAMINE [Benadryl] Med 11/02/19 08:20 Ordered 50 mg IVPUSH Q6H PRN ePHEDrine [ePHEDrine sulfate] Med 11/02/19 08:20 Ordered 10 mg IVPUSH ASDIRECTED PRN ePHEDrine [ePHEDrine sulfate] Med 11/02/19 08:20 Ordered 10 mg IVPUSH ASDIRECTED PRN DVT/VTE Prophylaxis Reflex [OM.PC] Routine Oth 11/02/19 08:20 Ordered Epidural Catheter Management [OM.PC] Routine Oth 11/02/19 08:21 Ordered Epidural Catheter Management [OM.PC] Urgent Oth 11/02/19 08:21 Ordered Peripheral IV Insertion Pediatric [OM.PC] Routine Oth 11/02/19 08:21 Ordered Saline Lock Insert [OM.PC] Routine Oth 11/02/19 08:21 Ordered Resuscitation Status Routine Resus Stat 11/02/19 08:20 Ordered Assessment/Plan Comment:: 11/02/2019 28 yo here at 39 4/7 gestational weeks for a planned induction of labor 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
[2019-11-02] MEDS ORDERED: Misoprostol 25 MCG (1/4 of 100 MCG) Tab ONE (12:13)
[2019-11-02] MEDS ORDERED: Lactated Ringers 1,000 ML IV SCH (15:45)
[2019-11-02] MEDS ORDERED: Ropivacaine 100 ML ONE (15:54)
[2019-11-02] MEDS ORDERED: Misoprostol 200 MCG Tab ONE (16:57)
[2019-11-02] MEDS ORDERED: Methylergonovine 0.2 MG/1 ML Amp ONE (16:57)
[2019-11-02] MEDS ORDERED: Carboprost Tromethamine 250 MCG/1 ML Amp ONE (16:57)
--- NOTE | 2019-11-02 17:10 | PCM.PNLD ---
Labor Progress Note - VS & Meds Vital Signs: Last Vital Signs Temp 36.5 C 11/02/19 12:18 Pulse 98 11/02/19 15:30 Resp 18 11/02/19 15:30 BP 112/71 11/02/19 13:05 Pulse Ox 97 11/02/19 15:30 Active Medications: Current Medications Acetaminophen (Tylenol) 650 mg PO Q4H PRN PRN Reason: Pain (Mild 1-3) and fever Diphenhydramine HCl (Benadryl) 25 mg IVPUSH Q6H PRN PRN Reason: Itching Diphenhydramine HCl (Benadryl) 50 mg IVPUSH Q6H PRN PRN Reason: Itching Ephedrine Sulfate (Ephedrine Sulfate) 10 mg IVPUSH ASDIRECTED PRN PRN Reason: Hypotension Ropivacaine 200 mg/ Premix 100 mls @ 0 mls/hr EPIDUR ASDIRECTED STEFANO Oxytocin/Sodium Chloride (Pitocin In Ns 20 Units/1,000 Ml) 20 unit in 1,000 mls @ 999 mls/hr IV TITRATE STEFANO; Protocol Lactated Ringer's (Ringers, Lactated) 1,000 mls @ 125 mls/hr IV ASDIRECTED STEFANO Naloxone HCl (Narcan) 0.1 mg IVPUSH ASDIRECTED PRN PRN Reason: Oversedation Ondansetron HCl (Zofran) 4 mg IV Q4H PRN PRN Reason: Nausea/Vomiting Sodium Chloride (Saline Flush) 10 ml FLUSH ASDIRECTED PRN PRN Reason: Keep Vein Open Discontinued Medications Carboprost Tromethamine (Hemabate Ds) Confirm Administered Dose 250 mcg .ROUTE .STK-MED ONE Stop: 11/02/19 16:58 Lactated Ringer's (Ringers, Lactated) 1,000 mls @ 999 mls/hr IV .BOLUS ONE Stop: 11/02/19 09:20 Last Admin: 11/02/19 14:45 Dose: 999 mls/hr Documented by: Ropivacaine (Naropin 0.2%) Confirm Administered Dose 100 mls @ as directed .ROUTE .STK-MED ONE Stop: 11/02/19 15:55 Methylergonovine Maleate (Methergine) Confirm Administered Dose 0.2 mg .ROUTE .STK-MED ONE Stop: 11/02/19 16:58 Misoprostol (Cytotec) 50 mcg VAG ONETIME ONE Stop: 11/02/19 06:51 Last Admin: 11/02/19 07:40 Dose: 50 mcg Documented by: Misoprostol (Cytotec) 25 mcg VAG ONETIME ONE Stop: 11/02/19 12:01 Last Admin: 11/02/19 12:17 Dose: 25 mcg Documented by: Misoprostol (Cytotec) Confirm Administered Dose 25 mcg .ROUTE .STK-MED ONE Stop: 11/02/19 12:14 Last Admin: 11/02/19 13:15 Dose: Not Given Documented by: Misoprostol (Cytotec) Confirm Administered Dose 800 mcg .ROUTE .STK-MED ONE Stop: 11/02/19 16:58 - Uterine Contractions Uterine Monitoring Mode: External [place] Contraction Frequency (min): 1.5-2 Contraction Duration (sec): 70-90 Contraction Intensity: Strong Uterine Resting Tone: Soft - Monitoring Heart Rate (FHR) Variability: Moderate (6-25 bmp) - Vaginal Exam Dilation (cm): 3-4 Effacement (Percent): 80 Cervical Position: Posterior Sterile Vaginal Exam Performed By: Rosy Puentes Vaginal Exam Comment: Patient requesting epidural - Labor Progress (Free Text) Labor Progress: 11/02/2019 SVE-3-4/80/-1-0 Contractions regular FHTs category one Patient requesting epidural Plan- Patient may have epidural Continue to monitor labor Continue to monitor FHTs call provider when comfortable Plan and anticipate a vaginal delivery
[2019-11-02] MEDS ORDERED: Lanolin 100% Cream 40 GM Tube TOP ONE (17:11)
[2019-11-02] MEDS ORDERED: Witch Hazel Medicated Pads 100/Jar TOP ONE (17:11)
[2019-11-02] MEDS ORDERED: Benzocaine 20% Top Spray 56 GM Bottle TOP ONE (17:11)
[2019-11-02] MEDS ORDERED: Ibuprofen 200 MG Tab, 24 Tab Bulk Bottle PO PRN (17:15)
[2019-11-02] MEDS ORDERED: Acetaminophen 325 MG Tab, 50 Tab Bulk Bottle PO PRN (17:15)
--- NOTE | 2019-11-02 17:30 | ANES ---
DATE OF SERVICE: 11/02/2019 PROCEDURE: Labor epidural. INDICATIONS: I was called this afternoon by the Labor and Delivery unit for a young lady in active labor requesting a labor epidural. I was at the bedside at approximately 1530. A brief history and physical was done with the patient. The patient is not on the blood thinners. Has had a normal and overall in very good health. She is not currently on the blood thinners. The risks and benefits were reviewed with the patient including risk for infection and risk for spinal headache. The patient verbalizes her understanding and still wishes to proceed. With the labor epidural at this time. TECHNIQUE: The patient was then sat at the edge of the bed. Betadine prep x3 to the lumbar region was done. Sterile drape was placed. 1% lidocaine skin wheal and deep was done. A 17-gauge Touhy was inserted at approximately the L4-L5 position. Loss of resistance was easily achieved. Negative paresthesia, negative heme, and negative CSF were though noted. Loss of resistance was at about 5.5 cm. I then placed an epidural catheter in through the needle without difficulty. The Tuohy needle was then withdrawn. The epidural catheter was pulled out and secured at approximately 14 cm. I then gave the patient a 4 mL test dose and finished securing the epidural. The patient was then laid in supine position with the head of bed slightly elevated and left uterine displacement done. After 3 to 4 minutes after the test dose, patient showed no signs of local anesthetic toxicity or intravascular injection of the local. I then gave the patient 12 mL of 0.2% ropivacaine bolus via the epidural and started her on a 0.2% ropivacaine drip at 12 mL an hour. The patient tolerated the bolus without difficulty. Vital signs were stable. Please refer to the nurse's notes for vital signs. Prior to leaving, the patient was stating that she was starting to feel some relief but was not still able to easily move her legs. We will be available as needed for the patient. Bogdan Donnelly CRNA /[id number]
--- NOTE | 2019-11-02 17:49 | PCM.DEL ---
L & D Note - General Info Date of Service: 11/02/19 Mother's Due Date: 11/06/19 - Delivery Note Cervical Ripening Method: Misoprostil Delivery Outcome: Livebirth Delivery Method: Spontaneous Vaginal Delivery-Single Delivery Mode: Spontaneous Presentation: Left Occiput Anterior (OLGA) Nuchal Cord: None Anesthesia Type: Epidural Amniotic Fluid Description: Clear Episiotomy Type: None Laceration: None Placenta: Intact, Spontaneous Cord: 3 Vessels Estimated Blood Loss: 350 Resuscitation Needed: No [place]: Suctioned, Bulb Syringe, Stimulated, Warmed Score 1 min: 9 Score 5 min: 9 Second Stage Interventions: Reports: Second Nurse Assessed Progress of Descent, Second Nurse Reviewed Contraction Pattern, Second Nurse Reviewed Heart Tones, Encouragement Given, Pushing Effectively, Pushing, McRobert's Position, Pushing, Stirrups/Leg Supports Delivery Comments (Free Text/Narrative):: 11/02/2019 28 yo delivered a viable female infant at 39 4/7 weeks gestation on 11/02/2019 @ 1652 in OLGA position over an intact perineum, did deliver head at end of contractions so had a mild shoulder dystocia relieve by suprapubic and Mariely position and only lasted 10-seconds from head delivery to shoulder delivery. Infant then delivered and was placed up on prewarmed blanket on mother abdomen. She began to cry vigorously, pink in color. Cord was on the shorter end so was kept lower on abdomen so delayed cord clamping could be done. Delayed cord clamping done for approximately 90 seconds, then cord was double clamped and cut by father of infant. was dried, stimulated, and bulb suctioined. She continued to cry and pink in color more. No nuchal was noted, and three vessel cord noted. We then had some clots with bright red bleeding, placenta came dirty silverio-but intact, total EBL-350. No lacerations noted of vagina, perineum, rectum, or cervix. AGPARS-12/12, weight-8lbs 11.5oz, length 20 inches. remains skin to skin and stable after delivery. Stages of labor [id number] - General Info Date of Service: 11/02/19 Functional Status: Reports: Pain Controlled - Review of Systems General: Reports: No Symptoms HEENT: Reports: No Symptoms Pulmonary: Reports: No Symptoms Cardiovascular: Reports: No Symptoms Gastrointestinal: Reports: No Symptoms Genitourinary: Reports: No Symptoms Musculoskeletal: Reports: No Symptoms Skin: Reports: No Symptoms Neurological: Reports: No Symptoms Psychiatric: Reports: No Symptoms - Patient Data Vitals - Most Recent: Last Vital Signs Temp 36.5 C 11/02/19 12:18 Pulse 100 11/02/19 15:50 Resp 18 11/02/19 16:00 BP 114/66 11/02/19 16:00 Pulse Ox 99 11/02/19 16:00 Weight - Most Recent: 66.224 kg I&O - Last 24 Hours: Intake & Output 11/02/19 11/02/19 11/02/19 06:59 14:59 22:59 Intake Total 600 Balance 600 Lab Results Last 24 Hours: Laboratory Results - last 24 hr 11/02/19 11/02/19 11/02/19 Range/Units 07:15 07:15 07:15 WBC 7.8 (4.5-11.0) K/uL RBC 3.70 (3.30-5.50) M/uL Hgb 12.8 (12.0-15.0) g/dL Hct 37.2 (36.0-48.0) % MCV 101 H (80-98) fL MCH 35 H (27-31) pg MCHC 34 (32-36) % Plt Count 103 L (150-400) K/uL Neut % (Auto) 73 H (36-66) % Lymph % (Auto) 19 L (24-44) % [place] % (Auto) 7 H (2-6) % Eos % (Auto) 1 L (2-4) % Baso % (Auto) 0 (0-1) % Urine Color Yellow (YELLOW) Urine Appearance Slightly cloudy A (CLEAR) Urine pH 6.0 (5.0-8.0) Ur Specific [place] 1.025 (1.008-1.030) Urine Protein Negative (NEGATIVE) mg/dL Urine Glucose (UA) 500 H (NEGATIVE) mg/dL Urine Ketones Trace H (NEGATIVE) mg/dL Urine Occult Blood Negative (NEGATIVE) Urine Nitrite Negative (NEGATIVE) Urine Bilirubin Negative (NEGATIVE) Urine Urobilinogen 0.2 (0.2-1.0) EU/dL Ur Leukocyte Esterase Negative (NEGATIVE) Urine RBC 0-5 (0-5) Urine WBC 0-5 (0-5) Ur Epithelial Cells Moderate Amorphous Sediment Not seen Urine Bacteria Many Urine Mucus Many Urine Opiates Screen Negative (NEGATIVE) Ur Oxycodone Screen Negative (NEGATIVE) Urine Methadone Screen Negative (NEGATIVE) Ur Propoxyphene Screen Negative (NEGATIVE) Ur Barbiturates Screen Negative (NEGATIVE) Ur Tricyclics Screen Negative (NEGATIVE) Ur Phencyclidine Scrn Negative (NEGATIVE) Ur Amphetamine Screen Negative (NEGATIVE) U Methamphetamines Scrn Negative (NEGATIVE) Urine MDMA Screen Negative (NEGATIVE) U Benzodiazepines Scrn Negative (NEGATIVE) U Cocaine Metab Screen Negative (NEGATIVE) U Marijuana (THC) Screen Negative (NEGATIVE) Med Orders - Current: Current Medications Acetaminophen (Tylenol Bulk Bottle) 0 mg PO Q4H PRN PRN Reason: Pain Diphenhydramine HCl (Benadryl) 25 mg IVPUSH Q6H PRN PRN Reason: Itching Diphenhydramine HCl (Benadryl) 50 mg IVPUSH Q6H PRN PRN Reason: Itching Ephedrine Sulfate (Ephedrine Sulfate) 10 mg IVPUSH ASDIRECTED PRN PRN Reason: Hypotension Ropivacaine 200 mg/ Premix 100 mls @ 0 mls/hr EPIDUR ASDIRECTED [facility] Oxytocin/Sodium Chloride (Pitocin In Ns 20 Units/1,000 Ml) 20 unit in 1,000 mls @ 999 mls/hr IV TITRATE [facility]; Protocol Lactated Ringer's (Ringers, Lactated) 1,000 mls @ 125 mls/hr IV ASDIRECTED [facility] Ibuprofen (Motrin Bulk Bottle) 600 mg PO Q6H PRN PRN Reason: Pain Naloxone HCl (Narcan) 0.1 mg IVPUSH ASDIRECTED PRN PRN Reason: Oversedation Ondansetron HCl (Zofran) 4 mg IV Q4H PRN PRN Reason: Nausea/Vomiting Sodium Chloride (Saline Flush) 10 ml FLUSH ASDIRECTED PRN PRN Reason: Keep Vein Open Discontinued Medications Acetaminophen (Tylenol) 650 mg PO Q4H PRN PRN Reason: Pain (Mild 1-3) and fever Benzocaine (Nlbt-O-Apukyfv 20% [place]) 0 gm TOP ONETIME ONE Stop: 11/02/19 17:12 Carboprost Tromethamine (Hemabate Ds) Confirm Administered Dose 250 mcg .ROUTE .STK-MED ONE Stop: 11/02/19 16:58 Emollient Ointment (Lansinoh Hpa) 0 gm TOP ONETIME ONE Stop: 11/02/19 17:12 Lactated Ringer's (Ringers, Lactated) 1,000 mls @ 999 mls/hr IV .BOLUS ONE Stop: 11/02/19 09:20 Last Admin: 11/02/19 14:45 Dose: 999 mls/hr Documented by: Ropivacaine (Naropin 0.2%) Confirm Administered Dose 100 mls @ as directed .ROUTE .STK-MED ONE Stop: 11/02/19 15:55 Methylergonovine Maleate (Methergine) Confirm Administered Dose 0.2 mg .ROUTE .STK-MED ONE Stop: 11/02/19 16:58 Misoprostol (Cytotec) 50 mcg VAG ONETIME ONE Stop: 11/02/19 06:51 Last Admin: 11/02/19 07:40 Dose: 50 mcg Documented by: Misoprostol (Cytotec) 25 mcg VAG ONETIME ONE Stop: 11/02/19 12:01 Last Admin: 11/02/19 12:17 Dose: 25 mcg Documented by: Misoprostol (Cytotec) Confirm Administered Dose 25 mcg .ROUTE .STK-MED ONE Stop: 11/02/19 12:14 Last Admin: 11/02/19 13:15 Dose: Not Given Documented by: Misoprostol (Cytotec) Confirm Administered Dose 800 mcg .ROUTE .STK-MED ONE Stop: 11/02/19 16:58 Witch Valery ([place]ucks) 1 pad TOP ONETIME ONE Stop: 11/02/19 17:12 - Exam General: Alert, Oriented, Cooperative HEENT: Pupils Equal, Pupils Reactive, EOMI, Mucous Membr. Moist/[place] Neck: Supple Lungs: Clear to Auscultation, Normal Respiratory Effort Cardiovascular: Regular Rate, Regular Rhythm, No Murmurs GI/Abdominal Exam: Normal Bowel Sounds, Soft, Non-Tender, No Organomegaly, No Distention, No Abnormal Bruit, No Mass, Pelvis Stable (Female) Exam: Normal External Exam, Normal Bimanual Exam, Enlarged Uterus, Vaginal Bleeding Back Exam: Normal Inspection, Full Range of Motion Extremities: Normal Inspection, Normal Range of Motion, Non-Tender, No Pedal Edema, Normal Capillary Refill Skin: Warm, Dry, Intact Wound/Incisions: Healing Well Neurological: No New Focal Deficit Psy/Mental Status: Alert, Normal Affect, Normal Mood - Problem List & Annotations (1) Encounter for induction of labor SNOMED Code(s): 058085235 Code(s): Z34.90 - ENCNTR FOR SUPRVSN OF NORMAL , UNSP, UNSP TRIMESTER Status: Acute Current Visit: Yes (2) SNOMED Code(s): 66208918 Code(s): Z34.90 - ENCNTR FOR SUPRVSN OF NORMAL , UNSP, UNSP TRIMESTER Status: Acute Current Visit: No Qualifiers: Weeks of gestation: 39 weeks (3) Normal vaginal delivery SNOMED Code(s): 35287579, 011034887 Code(s): O80 - ENCOUNTER FOR FULL-TERM UNCOMPLICATED DELIVERY Status: Acute Current Visit: Yes (4) () SNOMED Code(s): 960770646 Code(s): Z78.9 - OTHER SPECIFIED HEALTH STATUS Status: Acute Current Visit: Yes - Problem List Review Problem List Initiated/Reviewed/Updated: Yes - My Orders Last 24 Hours: My Active Orders 11/02/19 Breakfast Regular Diet [DIET] 11/02/19 08:20 Ambulate [RC] PER UNIT ROUTINE May Shower [RC] ASDIRECTED Notify Provider Vital Signs [RC] PRN Up ad Aris [RC] ASDIRECTED Naloxone [Narcan] 0.1 mg IVPUSH ASDIRECTED PRN Ondansetron [Zofran] 4 mg IV Q4H PRN Sodium Chloride 0.9% [Saline Flush] 10 ml FLUSH ASDIRECTED PRN diphenhydrAMINE [Benadryl] 25 mg IVPUSH Q6H PRN diphenhydrAMINE [Benadryl] 50 mg IVPUSH Q6H PRN ePHEDrine [ePHEDrine sulfate] 10 mg IVPUSH ASDIRECTED PRN DVT/VTE Prophylaxis Reflex [OM.PC] Routine Resuscitation Status Routine 11/02/19 08:21 Patient Status [ADT] Routine Communication Order [RC] ASDIRECTED Communication Order [RC] ASDIRECTED Communication Order [RC] ROUTINE Communication Order [RC] ROUTINE Communication Order [RC] ROUTINE Non Stress Test [RC] Click to Edit Local Anesthetic Infusion Pump [RC] ASDIRECTED Notify Provider [RC] PRN Oxygen Therapy [RC] ASDIRECTED PCEA Epidural [RC] ASDIRECTED Peripheral IV Care [RC] Q12H Pulse Oximetry [RC] ASDIRECTED Urinary Catheter Assessment [RC] ASDIRECTED Vital Signs [RC] Q4H Epidural Catheter Management [OM.PC] Routine Epidural Catheter Management [OM.PC] Urgent Peripheral IV Insertion Pediatric [OM.PC] Routine Saline Lock Insert [OM.PC] Routine 11/02/19 08:23 VTE/DVT Education [RC] Click to Edit 11/02/19 08:30 Insert Urinary Catheter [OM.PC] ASDIRECTED Ropivacaine [Naropin 0.2%] 200 mg Premix Bag 1 bag EPIDUR ASDIRECTED 11/02/19 15:00 Oxytocin/Normal Saline [Pitocin in NS 20 Units/1,000 ML] 20 unit in 1,000 ml IV TITRATE 11/02/19 15:45 Lactated Ringers [Ringers, Lactated] 1,000 ml IV ASDIRECTED 11/02/19 17:11 Assess Lochia [WOMSER] Per Unit Routine Assess Uterine Involution [WOMSER] Per Unit Routine 11/02/19 17:13 Patient Status [ADT] Routine Vital Signs [RC] PFP 11/02/19 17:14 Perineal Care [OM.PC] Per Unit Routine Sitz Bath [OM.PC] Per Unit Routine 11/02/19 17:15 Acetaminophen [Tylenol Bulk Bottle] See Dose Instructions PO Q4H PRN Ibuprofen [Motrin Bulk Bottle] 600 mg PO Q6H PRN 11/03/19 06:00 CBC WITH AUTO DIFF [HEME] Routine - Assessment Assessment:: 11/02/2019 28 yo G3 now P3 delivered without complications - Plan Plan:: 11/02/2019 28 yo here at 39 4/7 gestational weeks for a planned induction of labor 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 Was evaluated this time in [place] by [facility] but could not guarantee that this baby did not have this also-so planned induction was decided and desired by mother SVE-1-1.5/75/-2 Cytotec 50mcg placed vaginal @ 0740 FHTs category one Contractions irregular Labs-A neg, Hep B neg, Hep C neg, HIV neg, RPR nonreactive, GBS neg, Hgb-12.8 Plan- Monitor for labor Monitor FHTs Pain medication per patient request Up ad aris until epidural May shower or tub for pain control May eat a regular diet Plan and anticipate a vaginal delivery 11/02/2019 Routine cares Support and encourage Plan discharge in 24-48 hours
--- NOTE | 2019-11-03 08:03 | PCM.PNPP ---
- General Info Date of Service: 11/03/19 Functional Status: Reports: Pain Controlled - Review of Systems General: Reports: No Symptoms HEENT: Reports: No Symptoms Pulmonary: Reports: No Symptoms Cardiovascular: Reports: No Symptoms Gastrointestinal: Reports: No Symptoms Genitourinary: Reports: No Symptoms Musculoskeletal: Reports: No Symptoms Skin: Reports: No Symptoms Neurological: Reports: No Symptoms Psychiatric: Reports: No Symptoms - General Info Date of Service: 11/03/19 - Patient Data Vital Signs - Most Recent: Last Vital Signs Temp 36.9 C 11/03/19 07:38 Pulse 78 11/03/19 07:38 Resp 16 11/03/19 07:38 BP 114/77 11/03/19 07:38 Pulse Ox 95 11/03/19 07:38 Weight - Most Recent: 66.224 kg I&O - Last 24 Hours: Intake & Output 11/02/19 11/03/19 11/03/19 22:59 06:59 14:59 Intake Total 2 Balance 2 Lab Results - Last 24 Hours: Laboratory Results - last 24 hr 11/02/19 11/03/19 Range/Units 18:15 06:00 WBC 10.6 (4.5-11.0) K/uL RBC 3.61 (3.30-5.50) M/uL Hgb 12.5 (12.0-15.0) g/dL Hct 36.4 (36.0-48.0) % MCV 101 H (80-98) fL MCH 35 H (27-31) pg MCHC 34 (32-36) % Plt Count 96 L (150-400) K/uL Neut % (Auto) 76 H (36-66) % Lymph % (Auto) 16 L (24-44) % [place] % (Auto) 7 H (2-6) % Eos % (Auto) 1 L (2-4) % Baso % (Auto) 0 (0-1) % Blood Type A NEGATIVE Gel Antibody Screen Positive A* Antibody Identification TNP Rhogam Indicated Yes, baby rh pos Med Orders - Current: Current Medications Acetaminophen (Tylenol Bulk Bottle) 0 mg PO Q4H PRN PRN Reason: Pain Last Admin: 11/02/19 19:43 Dose: 650 mg Documented by: Diphenhydramine HCl (Benadryl) 25 mg IVPUSH Q6H PRN PRN Reason: Itching Diphenhydramine HCl (Benadryl) 50 mg IVPUSH Q6H PRN PRN Reason: Itching Ephedrine Sulfate (Ephedrine Sulfate) 10 mg IVPUSH ASDIRECTED PRN PRN Reason: Hypotension Ropivacaine 200 mg/ Premix 100 mls @ 0 mls/hr EPIDUR ASDIRECTED [facility] Last Admin: 11/02/19 15:45 Dose: 12 mls/hr Documented by: Oxytocin/Sodium Chloride (Pitocin In Ns 20 Units/1,000 Ml) 20 unit in 1,000 mls @ 999 mls/hr IV TITRATE [facility]; Protocol Last Admin: 11/02/19 16:52 Dose: 999 ml/hr, 999 mls/hr Documented by: Lactated Ringer's (Ringers, Lactated) 1,000 mls @ 125 mls/hr IV ASDIRECTED [facility] Last Admin: 11/02/19 15:45 Dose: 125 mls/hr Documented by: Ibuprofen (Motrin Bulk Bottle) 600 mg PO Q6H PRN PRN Reason: Pain Last Admin: 11/02/19 19:41 Dose: 600 mg Documented by: Naloxone HCl (Narcan) 0.1 mg IVPUSH ASDIRECTED PRN PRN Reason: Oversedation Ondansetron HCl (Zofran) 4 mg IV Q4H PRN PRN Reason: Nausea/Vomiting Sodium Chloride (Saline Flush) 10 ml FLUSH ASDIRECTED PRN PRN Reason: Keep Vein Open Discontinued Medications Acetaminophen (Tylenol) 650 mg PO Q4H PRN PRN Reason: Pain (Mild 1-3) and fever Benzocaine (Hmmr-C-Dtwhrgr 20% [place]) 0 gm TOP ONETIME ONE Stop: 11/02/19 17:12 Last Admin: 11/02/19 19:59 Dose: 1 applic Documented by: Carboprost Tromethamine (Hemabate Ds) Confirm Administered Dose 250 mcg .ROUTE .STK-MED ONE Stop: 11/02/19 16:58 Last Admin: 11/02/19 18:22 Dose: Not Given Documented by: Emollient Ointment (Lansinoh Hpa) 0 gm TOP ONETIME ONE Stop: 11/02/19 17:12 Last Admin: 11/02/19 19:58 Dose: 1 applic Documented by: Lactated Ringer's (Ringers, Lactated) 1,000 mls @ 999 mls/hr IV .BOLUS ONE Stop: 11/02/19 09:20 Last Admin: 11/02/19 14:45 Dose: 999 mls/hr Documented by: Ropivacaine (Naropin 0.2%) Confirm Administered Dose 100 mls @ as directed .ROUTE .STK-MED ONE Stop: 11/02/19 15:55 Methylergonovine Maleate (Methergine) Confirm Administered Dose 0.2 mg .ROUTE .STK-MED ONE Stop: 11/02/19 16:58 Last Admin: 11/02/19 18:22 Dose: Not Given Documented by: Misoprostol (Cytotec) 50 mcg VAG ONETIME ONE Stop: 11/02/19 06:51 Last Admin: 11/02/19 07:40 Dose: 50 mcg Documented by: Misoprostol (Cytotec) 25 mcg VAG ONETIME ONE Stop: 11/02/19 12:01 Last Admin: 11/02/19 12:17 Dose: 25 mcg Documented by: Misoprostol (Cytotec) Confirm Administered Dose 25 mcg .ROUTE .STK-MED ONE Stop: 11/02/19 12:14 Last Admin: 11/02/19 13:15 Dose: Not Given Documented by: Misoprostol (Cytotec) Confirm Administered Dose 800 mcg .ROUTE .STK-MED ONE Stop: 11/02/19 16:58 Last Admin: 11/02/19 18:22 Dose: Not Given [facility] TOP ONETIME ONE Stop: 11/02/19 17:12 Last Admin: 11/02/19 19:59 Dose: 1 applic Documented by: - Interaction Disposition, : [place] in Room with Family Infant Interaction: Holding Infant Feeding: Breastfed ; Nursed Well Support Person: Significant Other - Recovery Exam Fundal Tone: Firm Fundal Level: At Umbilicus Fundal Placement: Midline Lochia Amount: Small Lochia Color: Rubra/Red Perineum Description: Intact, Minimal Bruising/Swelling Episiotomy/Laceration: None Bladder Status: Nonpalpable Urinary Elimination: Voided - Exam General: Alert, Oriented, Cooperative HEENT: Pupils Equal, Pupils Reactive, EOMI, Mucous Membr. Moist/[place] Neck: Supple Lungs: Clear to Auscultation, Normal Respiratory Effort Cardiovascular: Regular Rate, Regular Rhythm GI/Abdominal Exam: Normal Bowel Sounds, Soft, Non-Tender, No Organomegaly, No Distention, No Abnormal Bruit, No Mass, Pelvis Stable Extremities: Normal Inspection, Normal Range of Motion, Non-Tender, No Pedal Edema, Normal Capillary Refill Skin: Warm, Dry, Intact Wound/Incisions: Healing Well Neurological: No New Focal Deficit Psy/Mental Status: Alert, Normal Affect, Normal Mood - Problem List & Annotations (1) Encounter for induction of labor SNOMED Code(s): 861604992 Code(s): Z34.90 - ENCNTR FOR SUPRVSN OF NORMAL , UNSP, UNSP TRIMESTER Status: Acute Current Visit: Yes (2) SNOMED Code(s): 56313010 Code(s): Z34.90 - ENCNTR FOR SUPRVSN OF NORMAL , UNSP, UNSP TRIMESTER Status: Acute Current Visit: No Qualifiers: Weeks of gestation: 39 weeks (3) Normal vaginal delivery SNOMED Code(s): 45291653, 671507226 Code(s): O80 - ENCOUNTER FOR FULL-TERM UNCOMPLICATED DELIVERY Status: Acute Current Visit: Yes (4) (infant) SNOMED Code(s): 889142594 Code(s): Z78.9 - OTHER SPECIFIED HEALTH STATUS Status: Acute Current Visit: Yes - Problem List Review Problem List Initiated/Reviewed/Updated: Yes - My Orders Last 24 Hours: My Active Orders 11/02/19 Breakfast Regular Diet [DIET] 11/02/19 08:20 Ambulate [RC] PER UNIT ROUTINE May Shower [RC] ASDIRECTED Notify Provider Vital Signs [RC] PRN Up ad Emma [RC] ASDIRECTED Naloxone [Narcan] 0.1 mg IVPUSH ASDIRECTED PRN Ondansetron [Zofran] 4 mg IV Q4H PRN Sodium Chloride 0.9% [Saline Flush] 10 ml FLUSH ASDIRECTED PRN diphenhydrAMINE [Benadryl] 25 mg IVPUSH Q6H PRN diphenhydrAMINE [Benadryl] 50 mg IVPUSH Q6H PRN ePHEDrine [ePHEDrine sulfate] 10 mg IVPUSH ASDIRECTED PRN DVT/VTE Prophylaxis Reflex [OM.PC] Routine Resuscitation Status Routine 11/02/19 08:21 Patient Status [ADT] Routine Notify Provider [RC] PRN Oxygen Therapy [RC] ASDIRECTED Peripheral IV Care [RC] Q12H Vital Signs [RC] Q4H Epidural Catheter Management [OM.PC] Routine Epidural Catheter Management [OM.PC] Urgent Peripheral IV Insertion Pediatric [OM.PC] Routine Saline Lock Insert [OM.PC] Routine 11/02/19 08:23 VTE/DVT Education [RC] Click to Edit 11/02/19 08:30 Insert Urinary Catheter [OM.PC] ASDIRECTED Ropivacaine [Naropin 0.2%] 200 mg Premix Bag 1 bag EPIDUR ASDIRECTED 11/02/19 15:00 Oxytocin/Normal Saline [Pitocin in NS 20 Units/1,000 ML] 20 unit in 1,000 ml IV TITRATE 11/02/19 15:45 Lactated Ringers [Ringers, Lactated] 1,000 ml IV ASDIRECTED 11/02/19 17:11 Assess Lochia [WOMSER] Per Unit Routine Assess Uterine Involution [WOMSER] Per Unit Routine 11/02/19 17:13 Patient Status [ADT] Routine 11/02/19 17:14 Perineal Care [OM.PC] Per Unit Routine Sitz Bath [OM.PC] Per Unit Routine 11/02/19 17:15 Acetaminophen [Tylenol Bulk Bottle] See Dose Instructions PO Q4H PRN Ibuprofen [Motrin Bulk Bottle] 600 mg PO Q6H PRN 11/02/19 18:15 ANTIBODY IDENTIFICATION [BBK] Routine SCREEN [BBK] Routine RHIG WORKUP, [BBK] Routine - Assessment Assessment:: 11/02/2019 28 yo G3 now P3 delivered without complications 11/03/2019 day one Fundus firm and bleeding decreasing Voiding and passing gas well - Plan Plan:: 11/02/2019 28 yo here at 39 4/7 gestational weeks for a planned induction of labor 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 Was evaluated this time in [place] by [facility] but could not guarantee that this baby did not have this also-so planned induction was decided and desired by mother SVE-1-1.5/75/-2 Cytotec 50mcg placed vaginal @ 0740 FHTs category one Contractions irregular Labs-A neg, Hep B neg, Hep C neg, HIV neg, RPR nonreactive, GBS neg, Hgb-12.8 Plan- Monitor for labor Monitor FHTs Pain medication per patient request Up ad emma until epidural May shower or tub for pain control May eat a regular diet Plan and anticipate a vaginal delivery 11/02/2019 Routine cares Support and encourage Plan discharge in 24-48 hours 11/03/2019 Continue routine cares Continue to support and encourage Plan discharge in 24-48 hours
[2019-11-03] MEDS ORDERED: Docusate Sodium 100 MG Cap PO PRN (08:07)
== END 2019-11-03 18:15 | disposition home or self-care (01) | DRG 807 ==
LOC: JP.OB 06:42 → OBSVTOIN 17:00 → JP.MS 17:34
PROVIDERS: ADMIT Advanced Practice Midwife; ATTEND Advanced Practice Midwife
PROC: 10E0XZZ Delivery of Products of Conception, External Approach (ICD-10-PCS; principal; 2019-11-02)
PROC: 3E0P7VZ Introduction of Hormone into Female Reproductive, Via Natural or Artificial Opening (ICD-10-PCS; 2019-11-02)
PROC: 3E0R3BZ Introduction of Anesthetic Agent into Spinal Canal, Percutaneous Approach (ICD-10-PCS; 2019-11-02)
PROC: 00HU33Z Insertion of Infusion Device into Spinal Canal, Percutaneous Approach (ICD-10-PCS; 2019-11-02)
DX: O80 Encounter for full-term uncomplicated delivery (principal); Z37.0 Single live birth; Z3A.39 39 weeks gestation of pregnancy
CPT/HCPCS: 36415; 51702; 59409; 80305-QW; 81001; 85025; 85460; 86850; 86900; 86901; A9270-GY; J2590; J2790; J2795; J7120